=== PATIENT | male | born 1970 | race African-American/Black ===

== ENCOUNTER 2018-03-21 07:28 | Emergency (ER) | payer MEDICARE, OTHER ==
[2018-03-21] MEDS ORDERED: LISINOPRIL 20 MG TAB PO (08:00)
[2018-03-21] MEDS: KETOROLAC 30 MG INJ IM (08:01)
== END 2018-03-21 08:50 | disposition home or self-care (01) ==
LOC: FTE 07:28
DX: M54.5 Low back pain (principal); I10 Essential (primary) hypertension; E66.9 Obesity, unspecified
CPT/HCPCS: 96372; 99284-25

== ENCOUNTER 2018-09-25 15:20 | Emergency (ER) | payer MEDICARE, OTHER ==
[2018-09-25 16:36] LABS: ADD MAN DIFF? NO
[2018-09-25 16:40] LABS: BASOPHIL # 0.1 10^3/ul (0.0-0.1); BASOPHILS % 0.5 % (0.0-2.0); EOSINOPHILS % 0.1 % (0.0-7.0); HEMATOCRIT 50.7 % (42.0-52.0); LYMPHOCYTES # 1.4 10^3/ul (0.8-2.9); LYMPHOCYTES % 11.7 % (15.0-51.0); MEAN CORPUSCULAR HEMOGLOBIN 26.5 pg (29.0-33.0); MEAN CORPUSCULAR HGB CONC 31.6 g/dl (32.0-37.0); MEAN CORPUSCULAR VOLUME 84.1 fl (82.0-101.0); MEAN PLATELET VOLUME 9.7 fl (7.4-10.4); MONOCYTE # 0.4 10^3/ul (0.3-0.9); MONOCYTES % 3.4 % (0.0-11.0); NEUTROPHIL # 10.1 10^3/ul (1.6-7.5); NEUTROPHILS % 83.9 % (39.0-77.0); PLATELET COUNT 430 10^3/UL (140-415); RED BLOOD COUNT 6.03 10^6/ul (4.70-6.10); RED CELL DISTRIBUTION WIDTH 14.3 % (11.5-14.5)
[2018-09-25] MEDS: DIPHENHYDRAMINE 50 MG INJ IV (16:45)
[2018-09-25] MEDS: FAMOTIDINE 20 MG INJ IV (16:45)
[2018-09-25] MEDS: HYDROmorphONE 1 MG/ML SYG IV (16:45)
[2018-09-25] MEDS: METOCLOPRAMIDE 10 MG INJ IV (16:45)
[2018-09-25] MEDS: LIDOCAINE/MYLANTA 40 ML BTL PO (16:45)
[2018-09-25] MEDS: SOD CHLORIDE 0.9% 1,000 ML IV (16:46)
[2018-09-25 17:06] LABS: ALANINE AMINOTRANSFERASE 22 IU/L (13-69); ALBUMIN 4.6 g/dl (3.3-4.9); ALBUMIN/GLOBULIN RATIO 0.95; ALKALINE PHOSPHATASE 125 IU/L (42-121); ANION GAP 13 (5-13); ASPARTATE AMINO TRANSFERASE 25 IU/L (15-46); BILIRUBIN,INDIRECT 0.5 mg/dl (0-1.1); BILIRUBIN,TOTAL 0.5 mg/dl (0.2-1.3); BLOOD UREA NITROGEN 13 mg/dl (7-20); CALCIUM 10.2 mg/dl (8.4-10.2); CARBON DIOXIDE 23 mmol/L (21-31); CHLORIDE 110 mmol/L (97-110); CREATININE 1.32 mg/dl (0.61-1.24); Estimated GFR > 60 mL/min (>60); GLUCOSE 124 mg/dl (70-220); LIPASE 61 U/L (23-300); POTASSIUM 4.4 mmol/L (3.5-5.1); SODIUM 146 mmol/L (135-144); TOTAL PROTEIN 9.4 g/dl (6.1-8.1)
[2018-09-25] MEDS: CAPSAICIN 0.025% 60 GM CR TOP (18:21)
== END 2018-09-25 18:59 | disposition home or self-care (01) ==
LOC: E/R 15:20
DX: K29.00 Acute gastritis without bleeding (principal); I10 Essential (primary) hypertension; E66.9 Obesity, unspecified; Z68.42 Body mass index [BMI] 45.0-49.9, adult
CPT/HCPCS: 36415; 80053; 83690; 85025; 96374; 96375; 99284-25